=== PATIENT | female | born 1955 | race Caucasian/White ===

== ENCOUNTER → 2017-05-15 | Outpatient (CLI) | payer BC ==
--- NOTE | 2017-05-15 13:28 | REPMRS ---
Patient History The patient states she has not had a clinical breast exam in over a year. Patient is postmenopausal and has history of cancer in the left breast at age 60. Family history of prostate cancer in paternal uncle at age 50 or over. Malignant localization of breast nodule of the left breast, June 24, 2015. Malignant ultrasound-guided core biopsy of the left breast, May 12, 2015. Radiation therapy of the left breast, 2014. Taking unspecified hormones for 1 year 6 months. Digital Woman Screen Mammo: May 15, 2017 - Exam #: [id number] Bilateral CC and MLO view(s) were taken. Technologist: Alma Modi, Technologist Prior study comparison: April 26, 2016, digital mammo diagnostic bilateral, performed at [facility]. May 12, 2015, digital mammo diagnostic bilateral, performed at [facility]. April 23, 2015, left breast digital mammo diagnostic unilateral, performed at [facility]. FINDINGS: There are scattered fibroglandular densities. There are stable post treatment changes in the left breast. There is a moderate amount of residual fibroglandular tissue which is fairly symmetric. There is no interval development of dominant mass, architectural distortion, or clustered microcalcification typical of malignancy. There has been no change in the appearance of the mammogram from the prior studies. ASSESSMENT: BI-RADS/ACR category 1 mammogram. Negative. Recommendation Routine screening mammogram of both breasts in 1 year (for women over age 40). This mammogram was interpreted with the aid of an FDA-approved computer-aided dectection system. Electronically Signed By: Kapil Ulloa MD 05/15/17 [id number]
== END ==
LOC: M WHC 10:20
PROVIDERS: ATTEND Family Medicine
DX: Z12.31 Encounter for screening mammogram for malignant neoplasm of breast (principal); Z85.3 Personal history of malignant neoplasm of breast

== ENCOUNTER → 2017-06-09 | Outpatient (CLI) | payer BC ==
[2017-06-09 10:03] LABS: MEAN CORPUSCULAR HEMOGLOBIN 30.9 pg (27.0-33.0); MEAN CORPUSCULAR HGB CONC 34.8 g/dl (32.0-36.5); MEAN CORPUSCULAR VOLUME 88.8 fl (80.0-96.0); RED CELL DISTRIBUTION WIDTH 12.2 % (11.5-14.5); WHITE BLOOD COUNT 4.5 10^3/uL (4.0-10.0)
[2017-06-09 10:52] LABS: ALBUMIN 3.9 GM/DL (3.2-5.2); ALBUMIN/GLOBULIN RATIO 1.18 (1.00-1.93); ALKALINE PHOSPHATASE 70 U/L (45-117); ALT/SGPT 24 U/L (12-78); ANION GAP 5 MEQ/L (8-16); AST/SGOT 16 U/L (15-37); BILIRUBIN,TOTAL 0.7 MG/DL (0.2-1.0); BLOOD UREA NITROGEN 12 MG/DL (7-18); CALCIUM LEVEL 8.5 MG/DL (8.8-10.2); CARBON DIOXIDE LEVEL 32 MEQ/L (21-32); CHLORIDE LEVEL 103 MEQ/L (98-107); CHOLESTEROL LEVEL 200 MG/DL (<200); CREATININE FOR GFR 0.76 MG/DL (0.55-1.02); GLOMERULAR FILTRATION RATE > 60.0 (>45); GLUCOSE, FASTING 81 MG/DL (80-110); POTASSIUM SERUM 4.5 MEQ/L (3.5-5.1); SODIUM LEVEL 140 MEQ/L (136-145); TOTAL PROTEIN 7.2 GM/DL (6.4-8.2); TRIGLYCERIDES LEVEL 155 MG/DL (<150)
== END ==
LOC: M LAB 09:01
PROVIDERS: ATTEND Family Medicine
DX: G25.81 Restless legs syndrome (principal)

== ENCOUNTER → 2018-04-09 | Outpatient (CLI) | payer BC | LOC: M WHC 07:57 | DX: M85.80 Other specified disorders of bone density and structure, unspecified site (principal) | CPT/HCPCS: 77080 ==

== ENCOUNTER → 2018-06-06 | Outpatient (CLI) | payer BC | LOC: M WHC 07:59 | DX: Z12.31 Encounter for screening mammogram for malignant neoplasm of breast (principal); N60.31 Fibrosclerosis of right breast; N60.32 Fibrosclerosis of left breast | CPT/HCPCS: 77067 ==

== ENCOUNTER → 2018-10-15 | Outpatient (CLI) | payer BC ==
[~2018-10-15] MED LIST: LETR2.5T2 PO; ROPI0.253 PO; VITA200028 PO
[2018-10-15 09:50] LABS: ALT/SGPT 19 U/L (12-78); BILIRUBIN,TOTAL 0.5 MG/DL (0.2-1.0); BLOOD UREA NITROGEN 15 MG/DL (7-18); CARBON DIOXIDE LEVEL 31 MEQ/L (21-32); CHLORIDE LEVEL 104 MEQ/L (98-107); CHOLESTEROL LEVEL 210 MG/DL (<200); CHOLESTEROL RISK RATIO 3.281 (<5); CREATININE FOR GFR 0.93 MG/DL (0.55-1.30); GLOMERULAR FILTRATION RATE > 60.0 (>45); GLUCOSE, FASTING 89 MG/DL (70-100); HDL CHOLESTEROL 64 MG/DL (>40); LDL CHOLESTEROL 125 MG/DL (<100); NON-HDL-C 146 MG/DL; POTASSIUM SERUM 4.5 MEQ/L (3.5-5.1); SODIUM LEVEL 139 MEQ/L (136-145); TOTAL PROTEIN 7.2 GM/DL (6.4-8.2); TRIGLYCERIDES LEVEL 107 MG/DL (<150)
[2018-10-15 09:52] LABS: HEMATOCRIT 44.5 % (36.0-47.0); HEMOGLOBIN 15.7 g/dl (12.0-15.5); MEAN CORPUSCULAR HEMOGLOBIN 30.8 pg (27.0-33.0); MEAN CORPUSCULAR HGB CONC 35.3 g/dl (32.0-36.5); MEAN CORPUSCULAR VOLUME 87.4 fl (80.0-96.0); PLATELET COUNT, AUTOMATED 341 10^3/uL (150-450); RED BLOOD COUNT 5.09 10^6/uL (4.00-5.40); WHITE BLOOD COUNT 5.1 10^3/uL (4.0-10.0)
[2018-10-15 10:04] LABS: TOTAL 25(OH) VITAMIN D 46.7 NG/ML (30.0-100.0)
== END ==
LOC: M LAB 08:30
PROVIDERS: ATTEND Family Medicine
DX: R07.89 Other chest pain (principal)

== ENCOUNTER → 2019-01-04 | Outpatient (CLI) | payer BC, OTHER ==
[~2019-01-04] MED LIST changes: +FOSA70TA PO
--- NOTE | 2019-01-04 17:09 | REP ---
ABDOMINAL SERIES: Supine and erect views of the abdomen demonstrate no free air and no evidence of small bowel obstruction. Mild to moderate fecal material is seen throughout the colon. Multiple phleboliths are seen in the pelvis. There are mild degenerative changes of the spine. An accompanying view of the chest demonstrates biapical and pleural parenchymal scarring with no evidence of acute infiltrate. Heart is normal in size. Mediastinal silhouette is unremarkable. IMPRESSION: No free air or obstruction. Electronically Signed by Bradley Holman MD 01/05/2019 02:56 P
== END ==
LOC: M LRY 15:35
PROVIDERS: ATTEND Nurse Practitioner Family
DX: R10.30 Lower abdominal pain, unspecified (principal)

== ENCOUNTER → 2019-07-30 | Outpatient (CLI) | payer BC, OTHER ==
--- NOTE | 2019-07-30 08:05 | REPMRS ---
Patient History The patient states she had a clinical breast exam in 2018. Patient is postmenopausal, has history of cancer in the left breast at age 60, and had previous chest radiation therapy at age 60. Family history of prostate cancer at age 50 or over in paternal uncle. Malignant localization of breast nodule of the left breast, June 24, 2015. Malignant ultrasound-guided core biopsy of the left breast, May 12, 2015. Radiation therapy of the left breast, 2014. Taking tamoxifen for 5 years. Digital Mammo Screening Bilat: July 30, 2019 - Exam #: [id number] Bilateral CC and MLO view(s) were taken. Technologist: Edith Pascual, Technologist Prior study comparison: June 06, 2018, bilateral digital woman screen mammo, performed at [facility]. May 15, 2017, digital woman screen mammo, performed at [facility]. April 26, 2016, digital mammo diagnostic bilateral performed at [facility]. FINDINGS: The breast tissue is heterogeneously dense. This may lower the sensitivity of mammography. There are stable post treatment changes in the left breast. There is a moderate amount of heterogeneously dense fibroglandular tissue which is fairly symmetric. There is no interval development of dominant mass, architectural distortion, or grouped microcalcification typical of malignancy. There has been no change in the appearance of the mammogram from the prior studies. 3-D tomosynthesis shows no additional findings. Assessment: BI-RADS/ACR category 2 mammogram. Benign Findings. Recommendation Routine screening mammogram of both breasts in 1 year (for women over age 40). This mammogram was interpreted with the aid of an FDA-approved computer-aided dectection system. Electronically Signed By: Kapil Ulloa MD 07/30/19 0804
== END ==
LOC: M RAD 07:23
PROVIDERS: ATTEND Nurse Practitioner Family
DX: Z12.31 Encounter for screening mammogram for malignant neoplasm of breast (principal); Z85.3 Personal history of malignant neoplasm of breast; Z78.0 Asymptomatic menopausal state

== ENCOUNTER → 2020-08-13 | Outpatient (CLI) | payer MEDICARE, BC ==
--- NOTE | 2020-08-13 09:22 | REPMRS ---
Patient History The patient states she had a clinical breast exam in 06/23 Patient is postmenopausal, has history of cancer in the left breast at age 60, and had previous chest radiation therapy at age 60. Family history of prostate cancer at age 50 or over in paternal uncle. Malignant localization of breast nodule of the left breast, June 24, 2015. Malignant ultrasound-guided core biopsy of the left breast, May 12, 2015. Radiation therapy of the left breast, 2014. Took tamoxifen for 5 years. Digital Woman Screen Mammo: August 13, 2020 - Exam #: [id number] Bilateral CC and MLO view(s) were taken. Technologist: Alma Modi, Technologist Prior study comparison: July 30, 2019, bilateral digital mammo screening bilat, performed at [facility]. June 06, 2018, bilateral digital woman screen mammo performed at [facility]. May 15, 2017, digital woman screen mammo performed at [facility]. FINDINGS: The breast tissue is heterogeneously dense. This may lower the sensitivity of mammography. The Volpara volumetric breast density category is: C. There are stable post treatment changes in the left breast. There is a moderate amount of heterogeneously dense fibroglandular tissue which is fairly symmetric. There is no interval development of dominant mass, architectural distortion, or grouped microcalcification typical of malignancy. There has been no change in the appearance of the mammogram from the prior studies. 3-D tomosynthesis shows no additional findings. Assessment: BI-RADS/ACR category 2 mammogram. Benign Findings. Recommendation Routine screening mammogram of both breasts in 1 year (for women over age 40). This mammogram was interpreted with the aid of an FDA-approved computer-aided dectection system. Electronically Signed By: Kapil Ulloa MD 08/13/20 0926
--- NOTE | 2020-08-13 11:32 | DEXAMM ---
INDICATION: M85.80 DISORDER OF BONE. COMPARISON: 04/09/2018 as well as other prior exams. TECHNIQUE: Bone density was measured using dual-energy x-ray absorptiometry (DEXA). FINDINGS: AP SPINE L1-L4 BMD 0.941 g/cm2 Young Adult T-Score -2.1 Age Matched Z-Score -0.5. LT FEMUR, TOTAL BMD 0.849 g/cm2 Young Adult T-Score -1.3 Age Matched Z-Score 0.0. LT NECK BMD 0.786 g/cm2 Young Adult T-Score -1.8 Age Matched Z-Score -0.3. RT FEMUR, TOTAL BMD 0.820 g/cm2 Young Adult T-Score -1.5 Age Matched Z-Score -0.3. RT NECK BMD 0.769 g/cm2 Young Adult T-Score -1.9 Age Matched Z-Score -0.5. IMPRESSION: There is low bone density of the spine. There is low bone density of the left hip. There is low bone density of the right hip. The density of the spine has decreased 8.7% since the initial exam on 05/14/2008. The density of the spine increased 5.4% since most recent exam on 04/09/2018. The density of the left hip has decreased 5.8% since initial exam on 05/14/2008. The density of the left hip has increased 0.4% since most recent exam on 04/09/2018. The density of the right hip has decreased 2.6% since the initial exam on 05/14/2008. The density of the right hip has increased 1.0% since the most recent exam on 04/09/2018. FOLLOW-UP: Recommendation for the next bone density exam: 2 years. <Electronically signed by Bradley Holman > 08/13/20 [id number]
== END ==
LOC: M WHC 08:07
PROVIDERS: ATTEND Family Medicine
DX: Z12.31 Encounter for screening mammogram for malignant neoplasm of breast (principal); M85.88 Other specified disorders of bone density and structure, other site; Z85.3 Personal history of malignant neoplasm of breast; Z92.3 Personal history of irradiation; M85.851 Other specified disorders of bone density and structure, right thigh; M85.852 Other specified disorders of bone density and structure, left thigh

== ENCOUNTER → 2020-09-16 | Outpatient (REF) | payer MEDICARE, OTHER ==
[~2020-09-16] MED LIST changes: +CALC1TAB63 PO; +GLUC500C55 PO
== END ==
LOC: M WUC 15:46
PROVIDERS: ATTEND Physician Assistant
DX: R30.0 Dysuria (principal)

== ENCOUNTER → 2021-09-27 | Outpatient (CLI) | payer MEDICARE, BC, OTHER ==
[~2021-09-27] MED LIST changes: -GLUC500C55 PO; +GLUC500C65 PO
== END ==
LOC: M WHC 11:35
PROVIDERS: ATTEND Family Medicine
DX: Z12.31 Encounter for screening mammogram for malignant neoplasm of breast (principal)

== ENCOUNTER → 2023-01-25 | Outpatient (CLI) | payer MEDICARE, BC, OTHER ==
[~2023-01-25] MED LIST changes: +ALEN70TA87 PO; +ASCO500C3 PO; -FOSA70TA PO; +ROPI0.253; +VITA5000 PO
== END ==
LOC: M WHC 11:17
PROVIDERS: ATTEND Internal Medicine Medical Oncology
DX: M85.89 Other specified disorders of bone density and structure, multiple sites (principal)

== ENCOUNTER → 2023-05-24 | Outpatient (CLI) | payer MEDICARE, BC, OTHER ==
[~2023-05-24] MED LIST changes: -ROPI0.253; -ROPI0.253 PO; +ROPI5TAB19; +ROPI5TAB19 PO
[2023-05-24 18:03] LABS: APPEARANCE, URINE MANUAL HAZY (CLEAR); COLOR, URINE MANUAL ORANGE (YELLOW); PH,URINE MAN OBSCURED UNITS (5.0 - 7.0)
[2023-05-24 18:04] LABS: BILIRUBIN, URINE MANUAL OBSCURED (NEGATIVE); BLOOD URINE MANUAL OBSCURED (NEGATIVE); GLUCOSE, URINE (UA) MANUAL OBSCURED mg/dL (NEGATIVE); KETONE, URINE MANUAL OBSCURED mg/dL (NEGATIVE); LEUKOCYTE ESTERASE, URINE MAN OBSCURED (NEGATIVE); NITRITE, URINE MANUAL OBSCURED (NEGATIVE); PROTEIN, URINE MANUAL OBSCURED mg/dL (NEGATIVE); SPECIFIC GRAVITY,URINE MANUAL 1.014 (1.002-1.035); UROBILINOGEN, URINE MANUAL OBSCURED mg/dl (NORMAL)
[2023-05-24 19:50] LABS: WBC, URINE TNTC /hpf (0-3)
[2023-05-24 19:51] LABS: BACTERIA, URINE LARGE AMOUNT; SQUAMOUS EPITHELIAL CELL URINE SMALL AMOUNT /hpf (SMALL AMT)
[2023-05-24 19:52] LABS: HYALINE CAST, URINE NONE SEEN /lpf (0-1); TRANSITIONAL EPI CELLS, URINE SMALL AMOUNT /hpf
== END ==
LOC: M LAB 17:09
PROVIDERS: ATTEND Family Medicine
DX: N39.0 Urinary tract infection, site not specified (principal)

== ENCOUNTER → 2024-05-17 | Outpatient (CLI) | payer MEDICARE, BC ==
[2024-05-17 15:48] LABS: EOS # 0.1 10^3/uL (0.0-0.5); EOS % 0.7 % (0.0-3.0); HEMOGLOBIN 14.5 g/dl (12.0-15.5); LYMPH # 1.5 10^3/uL (1.5-5.0); LYMPH % 18.3 % (24.0-44.0); MEAN CORPUSCULAR HGB CONC 35.4 g/dl (32.0-36.5); MEAN CORPUSCULAR VOLUME 90.5 fl (80.0-96.0); MONO # 0.4 10^3/uL (0.0-0.8); MONO % 4.7 % (2.0-8.0); NEUTROPHILS # 6.1 10^3/uL (1.5-8.5); NEUTROPHILS % 76.1 % (36.0-66.0); PLATELET COUNT, AUTOMATED 317 10^3/uL (150-450); RED BLOOD COUNT 4.53 10^6/uL (4.00-5.40); WHITE BLOOD COUNT 8.1 10^3/uL (4.0-10.0)
[2024-05-17 16:20] LABS: ALBUMIN 3.9 G/DL (3.2-5.2); ALKALINE PHOSPHATASE 74 U/L (46-116); ALT/SGPT 16 U/L (7.0-40); AST/SGOT 8 U/L (<34); BILIRUBIN,TOTAL 0.6 MG/DL (0.3-1.2); BLOOD UREA NITROGEN 14 MG/DL (9-23); CALCIUM LEVEL 9.3 MG/DL (8.3-10.6); CARBON DIOXIDE LEVEL 30 MMOL/L (20-31); CHLORIDE LEVEL 104 MMOL/L (98-107); CHOLESTEROL LEVEL 179 MG/DL (<200); CHOLESTEROL RISK RATIO 2.92 (<5); CREATININE FOR GFR 0.74 MG/DL (0.55-1.30); GLOMERULAR FILTRATION RATE > 60.0 (>45); GLUCOSE, FASTING 154 MG/DL (74-106); HDL CHOLESTEROL 61.2 MG/DL (>40); LDL CHOLESTEROL 87.6 MG/DL (<100); NON-HDL-C 117.8 MG/DL; SODIUM LEVEL 138 MMOL/L (136-145); TRIGLYCERIDES LEVEL 151 MG/DL (<150)
[2024-05-17 16:24] LABS: FREE T4 1.19 NG/DL (0.89-1.76); THYROID STIMULATING HORMONE 3.634 uIU/ML (0.55-4.78); TOTAL 25(OH) VITAMIN D 42.5 NG/ML (20.0-100.0)
== END ==
LOC: M RAD 14:43
PROVIDERS: ATTEND Family Medicine
DX: M85.80 Other specified disorders of bone density and structure, unspecified site (principal); R00.2 Palpitations; Z79.899 Other long term (current) drug therapy; E55.9 Vitamin D deficiency, unspecified

== ENCOUNTER → 2024-06-04 | Outpatient (CLI) | payer MEDICARE, BC ==
[~2024-06-04] MED LIST changes: +CALC600T61 PO; +PRAM0.5T4 PO
== END ==
LOC: M WHC 09:37
PROVIDERS: ATTEND Family Medicine
DX: Z53.9 Procedure and treatment not carried out, unspecified reason (principal)